=== PATIENT | male | born 1945 | race Caucasian/White ===

== ENCOUNTER 2017-12-15 07:34 | Day surgery (SDC) | payer MEDICARE, OTHER, SELFPAY ==
--- NOTE | 2017-12-15 | PATH_ITS ---
[facility] Accession Number: [id number] . 01 Material submitted: . TRANSVERSE COLON POLYP . 02 Diagnosis: Transverse Colon Polyp: Sessile serrated adenoma. I/12/19/2017 . 02 Electronically signed: . Jay Jay Villalobos MD, PhD, Pathologist NPI- [id number] . 01 Gross description: . TRANSVERSE COLON POLYP: Received in formalin are 2 fragment(s) of eduardo, soft tissue measuring 0.4 x 0.3 x 0.1 cm to 0.2 x 0.1 x 0.1 cm submitted entirely in 1 cassette(s) /CKI /CKI . 02 Pathologist provided ICD-10: D12.3 . 02 CPT . 618220 Performed at: 01 [facility] [address] [place] [address], [place], [place] [id number] MD Anibal Lowery MD Phone: [phone] Performed at: [address] [facility] [address] [place], [place] [id number] MD Rudi Snowden MD Phone: [phone]
[2017-12-15 08:07] VITALS: BP 134/79; PULSE 95; RESP 20; TEMP 36.2; O2SAT 18; BMI 25.1
[2017-12-15] MEDS: SODIUM CHLORIDE 0.9% 1,000 ML 200 ML IV (08:18)
--- NOTE | 2017-12-15 09:09 | PM.HP.1 ---
History of Present Illness Date Patient Seen: 12/15/17 Time Patient Seen: 09:09 Chief complaint: [id number] COLONOSCOPY Narrative: The patient is gentleman here for screening colonoscopy. No family history of colon cancer. No blood in his stool. Last exam 10 years ago. Patient History Medical History Uses hearing aid (Chronic) Family & Social History Social History: Never smoked and never drank. 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 Meds Allergies Allergy/AdvReac Type Severity Reaction Status Date / Time No Known Drug Allergies Allergy Verified 12/15/17 08:17 Review of Systems Review of Systems All systems reviewed & are unremarkable except as noted in HPI and below ENT Ears, Nose, Mouth, and Throat: Yes abnormal hearing (Uses hearing aid) Neurologic Neurologic: Reports abnormal hearing (Uses hearing aid) Exam Vital Signs (past 8 hours): Vital Signs - 8 hr 12/15/17 08:07 Temperature 97.2 F L Pulse Rate 95 H Respiratory Rate 20 Blood Pressure 134/79 H Pulse Oximetry 18 L Pulse Oximetry 18 Oxygen Delivery Method Room Air Narrative Exam Narrative: Operative no apparent distress. Lungs are clear to auscultation no rales or rhonchi heart regular rate and rhythm no murmur gallop abdomen is protuberant soft nontender without mass. Patient is alert and oriented x3. Assessment & Plan (1) Screening for colon cancer: Current visit: Yes Status: Acute Plan: Assessment/Plan Narrative: Will proceed with colonoscopy. I have discussed the procedure and the rationale with the patient including risks of bleeding, perforation which would necessitate a major operation, failure to find remove all lesions and the potential to tattoo. They appeared to understand and wished to proceed.
--- NOTE | 2017-12-15 09:13 | P.HP_ITS ---
History of Present Illness Date Patient Seen: 12/15/17 Time Patient Seen: 09:09 Chief complaint: [id number] COLONOSCOPY Narrative: The patient is gentleman here for screening colonoscopy. No family history of colon cancer. No blood in his stool. Last exam 10 years ago. Patient History Medical History Uses hearing aid (Chronic) Family & Social History Social History: Never smoked and never drank. 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 Meds Allergies Allergy/AdvReac Type Severity Reaction Status Date / Time No Known Drug Allergies Allergy Verified 12/15/17 08:17 Review of Systems Review of Systems All systems reviewed & are unremarkable except as noted in HPI and below ENT Ears, Nose, Mouth, and Throat: Yes abnormal hearing (Uses hearing aid) Neurologic Neurologic: Reports abnormal hearing (Uses hearing aid) Exam Vital Signs (past 8 hours): Vital Signs - 8 hr 3 12/15/17 08:07 Temperature 97.2 F L Pulse Rate 95 H Respiratory Rate 20 Blood Pressure 134/79 H Pulse Oximetry 18 L Pulse Oximetry 18 Oxygen Delivery Method Room Air Narrative Exam Narrative: Operative no apparent distress. Lungs are clear to auscultation no rales or rhonchi heart regular rate and rhythm no murmur gallop abdomen is protuberant soft nontender without mass. Patient is alert and oriented x3. Assessment & Plan (1) Screening for colon cancer: Current visit: Yes Status: Acute Plan: Assessment/Plan Narrative: Will proceed with colonoscopy. I have discussed the procedure and the rationale with the patient including risks of bleeding, perforation which would necessitate a major operation, failure to find remove all lesions and the potential to tattoo. They appeared to understand and wished to proceed.
--- NOTE | 2017-12-15 09:13 | PM.PREOP ---
Pre-operative Note Interval Note Pre-op Check: History & Physical exam performed today H&P completed within 30 days and has changed as indicated here:: None ASA Class (for procedural sedation): I
[2017-12-15] MEDS: MIDAZOLAM 5 MG/5 ML VIAL 4 MG IV (09:35)
[2017-12-15] MEDS: fentaNYL 250 MCG/5 ML INJ 200 MCG IV (09:35)
[2017-12-15 09:50] VITALS: BP 106/68; PULSE 59; RESP 12; TEMP 36.3; O2SAT 97
[2017-12-15 09:56] VITALS: BP 105/73; PULSE 75; RESP 12; O2SAT 95
--- NOTE | 2017-12-15 09:56 | PM.OP.ENDO ---
Operative Date/Time/Diagnoses - Date of procedure: 12/15/17 Time of procedure: 09:56 Pre-op diagnosis: Screening examination. Last exam over 10 years ago. Post-op diagnosis: same (Polyp in transverse colon. Sigmoid diverticulosis.) Procedure & Clinicians Study performed: Colonoscopy with hot snare polypectomy Same procedure as scheduled: Yes Indications: Screening for colon cancer Surgeon: Piero Farley Procedure Notes SCOAP/Timeout: Performed Procedure in detail: The patient was placed in the left lateral decubitus position and underwent IV sedation directed by the surgeon consisting of fentanyl and Versed. Digital exam was unremarkable except for slight enlargement of the prostate.. The scope was inserted and advanced through the rectum into the sigmoid, descending, transverse, and ascending colon. Patient was noted to have diverticulosis in the sigmoid colon. In the transverse colon there was a small polyp which was snared and removed on the way in. The base was cauterized in the area. The cecum was reached identified by the ileocecal valve and the appendiceal opening. The ileocecal valve was[successfully] cannulated. The terminal ileum was normal in appearance. The scope was gradually brought out. No other Polyps were found . The scope ultimately was retroflexed in the rectum. The appearance was[normal]. The scope was removed and the patient tolerated the procedure well Scope withdrawal time: 8 min Sedation minutes: 33 Findings: diverticulosis (Sigmoid) and polyp (Transverse colon) Specimen(s): other (Polyp) Complications: none Recommendations: Colonscopy in 5 years (If polyp not neoplastic then no further colonoscopy necessary due to age) Plan for aftercare: Follow-up as needed. We will send him a letter. Follow up: as needed Disposition: PACU
[2017-12-15 10:14] VITALS: BP 112/68; PULSE 59; RESP 15; TEMP 36; O2SAT 95
--- NOTE | 2017-12-15 11:16 | SUR.PHASEII ---
Waiting on son in law to arrive to take Babak home, but unable to contact. RADHA apparently expected patient stay here to be at least 3 hours. Finally able to contact RADHA via text and he is aware of patient readiness for discharge. Patient desires to dress and wait in more comfortable lobby, and that is done until RADHA arrives.
--- NOTE | 2017-12-15 11:37 | SUR.PHASEII ---
[facility]charged from [facility] via with volunteer at 1130.
== END 2017-12-15 11:15 | disposition home or self-care (01) ==
PROVIDERS: PCP Internal Medicine; Visit Provider Specialist
PROC: 0DJD8ZZ Inspection of Lower Intestinal Tract, Via Natural or Artificial Opening Endoscopic (ICD-10-PCS; CPT 45378; principal; 2017-12-15 08:45)
DX: Z12.11 Encounter for screening for malignant neoplasm of colon (principal); K57.30 Diverticulosis of large intestine without perforation or abscess without bleeding; D12.3 Benign neoplasm of transverse colon
CPT/HCPCS: 45385; 99152; 99153; J2250; J3010